=== PATIENT | female | born 1945 | race Caucasian/White ===

== ENCOUNTER 2020-06-01 10:36 | Emergency (ER) | payer OTHER ==
[~2020-06-01] VITALS: Ht 162.6 cm; Wt 59.2 kg
[2020-06-01] MEDS ORDERED: CHILDREN'S ASPI81 M1 PO (10:54)
[2020-06-01] MEDS ORDERED: LIPITOR 40 MG T40 M1 PO (10:55)
[2020-06-01] MEDS ORDERED: SERTRALINE HCL100 MG PO (10:55)
[2020-06-01] MEDS ORDERED: CLARITIN10 M3 PO (10:55)
[2020-06-01] MEDS ORDERED: NEXIUM 40 MG CA40 M1 PO (10:55)
[2020-06-01] MEDS ORDERED: METAMUCIL FREE822 GM PO (10:56)
[2020-06-01] MEDS ORDERED: CLOMIPRAMINE HC50 M1 PO (10:56)
[2020-06-01 11:35] LABS: HEMATOCRIT 29.2 % (37.0-47.0); HEMOGLOBIN 9.3 gm/dL (12.0-15.0); MCH 20.5 pg (26.0-34.0); MCV 64.2 fL (80.0-100.0); PLATELET COUNT 240 thou/uL (150-400); RBC 4.54 mil/uL (4.20-5.00); RDW 15.8 % (10.5-14.5); WBC 7.7 thou/uL (4.0-11.0)
[2020-06-01 11:38] LABS: URINE BILIRUBIN NEGATIVE (Negative); URINE BLOOD NEGATIVE (Negative); URINE CLARITY CLEAR; URINE COLOR YELLOW; URINE GLUCOSE-RANDOM* NEGATIVE (Negative); URINE KETONES NEGATIVE (Negative); URINE LEUKOCYTES-REFLEX NEGATIVE (Negative); URINE NITRITE-REFLEX NEGATIVE (Negative); URINE PROTEIN (DIPSTICK) NEGATIVE (Negative); URINE UROBILINOGEN 0.2 E.U./dl (0.2-1.0)
[2020-06-01 11:46] LABS: CALCIUM 8.5 mg/dL (8.5-10.1); CREATININE 0.6 mg/dL (0.6-1.0); POTASSIUM 4.3 mmol/L (3.5-5.1)
[2020-06-01 11:55] LABS: ABSOLUTE NEUTROPHILS 5.3 thou/uL (1.4-8.2); ANISOCYTOSIS 1+; HYPOCHROMASIA 1+; MICROCYTES 2+; PLATELET ESTIMATE NORMAL
[2020-06-01 17:40] VITALS: BP 160/81
== END 2020-06-01 17:48 ==
LOC: ER 10:36
PROVIDERS: Nurse Practitioner
DX: R46.89 Other symptoms and signs involving appearance and behavior (principal); Z20.822 Contact with and (suspected) exposure to COVID-19; E78.00 Pure hypercholesterolemia, unspecified; Z88.0 Allergy status to penicillin; Z79.82 Long term (current) use of aspirin; Z79.899 Other long term (current) drug therapy; Z90.710 Acquired absence of both cervix and uterus

== ENCOUNTER 2020-06-01 14:32 | Inpatient (IN) | payer OTHER ==
[~2020-06-01] VITALS: Ht 165.1 cm; Wt 57.3 kg
[~2020-06-01 14:32] MED LIST: CHILDREN'S ASPI81 M1 PO; CLARITIN10 M3 PO; CLOMIPRAMINE HC50 M1 PO; LIPITOR 40 MG T40 M1 PO; METAMUCIL FREE822 GM PO; NEXIUM 40 MG CA40 M1 PO; SERTRALINE HCL100 MG PO
--- NOTE | 2020-06-01 18:46 | NUR ---
PATIENT ADMITED TO FLOOR AT 1800 VIA CART, TRANSFERED TO BED. VS OBTAINED BP- 141/96 P-114 R-18 T-97.2 O2 SATS 97%. PATIENT SLEEPING AND SNORING. REPORT RECIEVED FROM ED AT 1845. DR CURIEL HERE TO SEE PATIENT. WILL REPORT OFF TO NEXT SHIFT.
[2020-06-01 19:40] VITALS: BP 136/83
--- NOTE | 2020-06-01 21:00 | NUR ---
PHARMACY CALLED AND STATED THEY DIDN'T HAVE CLOMIPRAMINE THAT THE PT WOULD PROBABLY NEED TO BRING HOME MED OR USE ANOTHER TCA: AMITRIPTALINE.
[2020-06-01 21:30] VITALS: BP 136/83
--- NOTE | 2020-06-01 21:44 | NUR ---
PT UP AND AT NURSING STATION ASKING FOR , PT WEARING GOWN AND NO SOCKS. PT ESCORTED TO DINING ROOM AND OFFERED SOMETHING TO EAT, PT WANTED SOME COFFEE. PT UNABLE TO HAVE COFFEE AT THIS TIME. PT ATE APPLESAUCE, PUDDING, MAORI ICEY, AND WATER. PT ORIENTED TO SELF, PLACE, DAY, AND PRESIDENT. PT STATED SHE WAS HERE FOR A MED REACTION. 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 PT STATED SHE LOST WT AND WAS WEARING SIZE 12 DOWN TO SIZE 6. PT STATED SHE HAD ONE SON NAMED TASHA AND HE WHEN HE WAS 39 FROM [place], SHE STATED HE WAS IN A [facility] AND WAS AUTISTIC. SHE SAID HOW SMART HE WAS AND HE COULD FIND HER CAR IN A HOSPITAL PARKING LOT FULL OF DIFFERENT CARS. SHE IS HARD OF HEARING AND DOES NOT HAVE HER HEARING AIDS WITH HER. GAVE PT GRIPPER SOCKS TO WEAR AND A WALKER. CALLUM SAVAGE CAME TO INTERVIEW HER. SHE SAID SHE HAD HISTORY OF SI YEARS AGO AND SHE LEARNED FROM THAT. DENIES ANY SI OR HI AND ALSO ANY HALLUCINATIONS AT THIS TIME.
[2020-06-02 05:39] LABS: ALBUMIN 2.8 g/dL (3.4-5.0); DIRECT BILIRUBIN 0.1 mg/dL (<0.1-0.2); TOTAL BILIRUBIN 0.5 mg/dL (0.2-1.0)
[2020-06-02 06:06] LABS: FOLIC ACID 11.4 ng/mL (8.6-58.9)
[2020-06-02 10:27] VITALS: BP 126/75
--- NOTE | 2020-06-02 12:09 | NUR ---
PT ALERT AND ORIENTED TIMES FOUR. VSS. PT DENIES PAIN/SOA. PT ALSO DENIES SI/HI/AH/VH. PT INTERACTS WITH STAFF AND PEERS. PT ATTENDS GROUPS. PT WORKED WELL WITH PT TODAY WALKING AROUND THE UNIT. PT WAS HERE VISITING THIS MORNING. WILL CONTINUE TO MMONITOR.
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
--- NOTE | 2020-06-02 16:53 | EKG ---
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
[2020-06-02 19:34] VITALS: BP 125/57
--- NOTE | 2020-06-03 01:05 | NUR ---
Alert and orientated X4. Interacting with peers and staff. Talking about her autistic son who this year at age 39. Denies SI/HI. Able to stand and take a few steps, calm, cooperative and compliant. Breath sounds clear. Reg HR auscultated. Color pink with brisk capillary refill and palpable peripheral pulses. Yellow urine. Active bowel sounds over soft, flat abdomen. Currently sleeping without s/o distress.
[2020-06-03 09:03] VITALS: BP 160/69
--- NOTE | 2020-06-03 12:22 | NUR ---
PATIENT ALERT AND ORIENTED X 4 - HYPERVERBAL THIS MORNING. FIXATED AND TALKED ABOUT PRINCE LAUREN AND ROYAL FAMILY CONTINUOUSLY. EASILY REDIRECTED. NO PAIN WHEN ASSESSED OR DISCOMFORT. STATED SLEPT WELL. MEDICATION COMPLIANT - NAKES NEEDS KNOWN READILY. DENIES ANY S/I OR H/I UP AND AMBULATING WITH WALKER.
[2020-06-03 19:38] VITALS: BP 133/70
--- NOTE | 2020-06-04 00:44 | NUR ---
Alert and orientated X4. Denies SI/HI. Interactive with peers and staff, hyperverbal. Ambulates with walker with slow gait. Breath sounds clear. Reg HR auscultated. Color pink with brisk capillary refill and palpable peripheral pulses. Yellow urine per toilet. Active bowel sounds over soft, rounded abdomen. Currently sleeping without s/o distress.
[2020-06-04 08:52] VITALS: BP 143/80
--- NOTE | 2020-06-04 15:32 | NUR ---
SLIGHTLY HYPERVERBAL DURING 1;1 INTERACTION/PHYSICAL ASSESSMENT THIS AM-SPEECH IS GARBLED AND DIFFICULT TO UNDERSTAND AT TIMES -PRESSURED SPEECH AND CONVERSATION IS CIRCUMSTANTIAL-INITALLY TALKING ABOUT MOVING TO 1 YEAR AGO AND TRANSITIONED TO EXTENDED FAMILY AND THEIR CAREERS/CHILDREN. WAS COOPERATIVE WITH REQUESTS FROM STAFF AND INTERACTS PLEASANTLY WITH PEERS AND STAFF. DENIES C/O PAIN/DISCOMFORT. AMBULATES WITH SBA X1. GAIT STEADY WITHOUT ASSISTIVE DEVICES. DESCRIBES MOOD "PRETTY GOOD"-NO NOTED OR REPORTED ACUTE ANXIETY-A/V HALLUCINATIONS OR PARANOIA/PSYCHOSIS.APPETITE GOOD
[2020-06-04 19:21] VITALS: BP 156/62
[2020-06-04 20:30] VITALS: BP 156/62
--- NOTE | 2020-06-05 04:51 | NUR ---
PATIENT SAT UP IN DINING ROOM THIS EVENING. AT FIRST SHE SAT OFF BY HERSELF BUT GRADUALLY MOVED TO CENTER OF ROOM AND SAT ON THE COUCH. SHE WATCHED TV WITH ANOTHER FEMALE PATIENT AND THEY SEEMED TO ENJOY EACH OTHER'S COMPANY. PATIENT WAS ASSISTED TO HER ROOM AT 2200 TO GET READY FOR BED. SHE TOOK HER MED WHOLE WITH WATER. SHE HAS BEEN PLEASANT AND COOPERATIVE. SHE IS FRIENDLY AND SMILING. SHE IS VERY [place]. SHE READS LIPS WELL. DENIES PAIN. DENIES SI/HI/AVH. SHE IS A/0X3 AND IS HYPERVERBAL. SHE IS APPROPRIATE FOR AGE. PT HAS BEEN RESTING IN BED WITH EYES CLOSED. PATIENT IS CONTINENT. ROUTINE ROUNDS TO ASSESS SAFETY AND STATUS OF PATIENT. BED IN LOW POSITION.
[2020-06-05 08:48] VITALS: BP 140/57
[2020-06-05 11:31] VITALS: BP 140/57
--- NOTE | 2020-06-05 12:32 | NUR ---
1230 RESUMMED CARE FROM OVERNIGHT SHIFT THIS AM, PATIENT IN ROOM ASLEEP. I GOT PATIENT READY FOR BREAKFAST SHE ATE TOOK MEDICATION WITHOUT INCIDENCE. PATIENT DENIES SI/HI/AH/VH AT PRESENT. PATIENTS ABDOMEN SOFT BOWEL SOUNDS PRESENT PATIENTS LUNGS CLEAR. PATIENT ALERT ORIENTED TIMES 3 SHE DOES PARTICPATE IN GROUPS. PATIENT OCCASSIONAL TALKS WITH OTHER FEMALE PATIENTS PATIENT HAS NO BEHAVIORS THIS SHIFT. WILL CONTINUE TO MONITOR PATIENT FOR SAFETY AND BEHAVIORS.
[2020-06-05 19:34] VITALS: BP 143/72
[2020-06-05 20:06] LABS: SYPHILIS AB Non Reactive (Non Reactive)
[2020-06-05 20:10] VITALS: BP 143/72
--- NOTE | 2020-06-06 04:42 | NUR ---
PATIENT STATES SHE DID NOT HAVE A GOOD DAY BUT FELT HER EVENING WAS MUCH BETTER SINCE SHE WAS SITTING IN THE DINING ROOM WITH LOTS OF PEOPLE. SHE HAS BEEN SMILING AND SPEAKS WHEN SPOKEN TOO AND THEN SHE DOESN'T WANT TO STOP TALKING. SHE HAS GREAT DIFFICULTY IN HEARING AND A PERSON HAS TO YELL FOR HER TO HEAR THEM. SHE IS INDEPENDENT WITH CARES. CONTINENT. A/0X3 BUT CONFUSED AT TIMES. DENIES PAIN, SI/HI/AVH. ROUTINE ROUNDS TO ASSESS SAFETY AND STATUS OF PATIENT. SHE HAS BEEN CALM AND COOPERATIVE. ENCOURAGED FLUIDS TONIGHT WITH MEDS AND AT SNACK TIME.
[2020-06-06 08:53] VITALS: BP 157/66
--- NOTE | 2020-06-06 16:33 | NUR ---
VISIBLE IN DAYROOM INTERACTING WITH PEERS THROUGHOUT MAJORITY OF SHIFT-DID ATTEND ALL MEALS AND SCHEDULED GROUPS WITH MINIMAL PROMPTS. REPORTINGS ENJOYING TALKING TO OTHERS CALLING HERSELF A "CHATTERBOX" SPEECH IS LOUD,GARBLED AND PRESSURED-CONVERSATION AT TIMES TANGENTIAL IS ORIENTED X4-AMBULATORY PER SELF AND CONTINENT OF B/B. REPORTS GOOD APPETITE AND SLEEP AND DENIES ANY PAIN/DISCOMFORT WHEN ASKED DURING AM ASSESSMENT.
--- NOTE | 2020-06-06 17:13 | NUR ---
MILK OF MAGNESIA 15ML GIVEN PO PRN PER REQUEST AT 1700-STATES HASN'T HAD A BM FOR "A LONG TIME" UNABLE TO RECALL EXACT DATE BUT THINKS IT WAS "4 OR 5 DAYS" IS DOCUMENTED HAVING BM ON 06-04 BUT STATES THAT WAS "REAL SMALL" BS ACTIVE X4-ABDOMEN SOFT-NONTENDER.
[2020-06-06 19:58] VITALS: BP 143/85
--- NOTE | 2020-06-07 04:43 | NUR ---
ASSUMED CARE ON 06/06/20 @ 1900, IN THE DAY ROOM WITH PEERS AND STAFF. BECOMES CONCERNED ABOUT PEERS AND WORRIES ABOUT THEIR BEHAVIORS. COMPLIANT WITH MEDICATION AND COOPERATIVE WITH ASSESSMENT. RETIRED TO BED @ , BED IN LOW POSITION, ROUNDING PER UNIT PROTOCOL.
--- NOTE | 2020-06-07 17:13 | NUR ---
SW sent referrals to the following: Rom Gallardo of [facility] will follow up
--- NOTE | 2020-06-07 19:10 | NUR ---
PATIENT UP AND AD RALPH. PLEASANT- MAKES NEEDS KNOWN - DENIES S/I OR H/I - MEDICATION COMPLIANT. HYPERVERBAL - THOUGHT PATTERNS JUMBLED - GOES OFF TRACK. GOOD APPETITE. ASSESSEDBY DIAMOND KENDALL AT 3 PM TODAY. FACILITY COMING TOMORROW TO ASSESS PATIENT FOR POSSIBLE ADMITTANCE - UNABLE TO MEET WITH PATIENT TODAY PATIENT EASILY REDIRECTED. WORKED WITH PHYSICAL THERAPY AND WAS INFORMED THAT RIGHT SHOE SHOULD BE WORN FOR BALANCE WHEN AMBULATING WITH WALKER. PASSE DON TO PUPIL PERSONNEL WORKER.
[2020-06-07 19:36] VITALS: BP 133/59
--- NOTE | 2020-06-08 04:34 | NUR ---
ASSUMED CARE ON 06/07/20 @ 19:15, SOCIALIZING WITH PEERS AND COMMUNICATING WITH STAFF IN THE DAY ROOM. A&OX4, HOWEVER VERY [place]. PLEASANT AFFECT NOTED, LIKES TO BE HELPFUL. GABAPENTIN INCREASED OT 200MG. TAKES MEDS WHOLE WITH WATER. LAST BM NOTED TO BE 06/06. REQUESTED AND PROVIDED METAMUCIL FOR CONSTIPATION. RETIRED TO BED @ HS, EYES CLOSED, RESPIRATIONS EVEN AND UNLABORED. AMBULATES WITH A WALKER. WILL CONTINUE TO MONITOR FOR COMFORT AND SAFETY PER UNIT PROTOCOL.
[2020-06-08 09:35] VITALS: BP 140/70
--- NOTE | 2020-06-08 11:27 | NUR ---
Pt completed and in person assessment with Barb Bustamante of OP. [facility] facilities have accepted the Pt and will reach out to Juan Francisco. SRUTHI will also reach out to Juan Francisco concerning his decision on his facility choice. SRUTHI will continue to follow up
--- NOTE | 2020-06-08 14:19 | NUR ---
RT Progress Note- Pili has been active in both the milieu and recreation therapy groups since her admission. Pili is very hard of hearing, but is certain to sit near group wall attendant to maximize hearing. She enjoys sharing stories and socializing with fellow pts. She has not displayed poor behaviors during RT interaction. UNCRATER will continue to encourage pts participation and socialization.
[2020-06-08 16:15] VITALS: BP 140/70
[2020-06-08 16:20] VITALS: BP 140/70
--- NOTE | 2020-06-08 16:26 | NUR ---
ASSUMED CARE AT 0700 THIS MORNING. PT. IS ALERT AND ORIENTED X 4. SHE IS HYPERVERBAL PARTICIPATING IN GROUPS. SHE IS EXTREMELY [place]. SHE TAKES HER MEDICATIONS WHOLE WITH WATER. HER VSS. LUNGS CTA. HRR. SHE HAS A SORE ON HER RIGHT SECOND TOE, SHE SAYS IS EXTREMELY PAINFUL. SHE IS NOT WEARING A SHOE ON THAT FOOT DUE TO THE SORE. SHE IS RECEIVING GABAPENTIN FOR PAIN. SHE IS AMBULATORY W/WALKER. SHE CONTINUES TO BE MONITORED Q 12 MINUTES AND PRN FOR SAFETY. NO NEW PROBLEMS NOTED OR VOICED. WILL CONTINUE TO MONITOR.
[2020-06-08 20:00] VITALS: BP 127/50
--- NOTE | 2020-06-09 01:22 | NUR ---
ASSUMED CARE AT 1900.PT WAS OBSERVED SITTING IN THE DAY ROOM SOCIALIZING WITH OTHERS BEFORE SHE RETIRED FOR THE NIGHT.PT [place],LOUD WHEN HAVING CONVERSATIONS. PT WAS OBSERVED STRAINING TO HAVE A BM DURING ONE OF MY ROUNDING.PT REQUESTED FOR STOOL SOFTNER,PRN MOM GIVEN.PT HAD A FEW HARD FORMED MARIA R THAT WAS DIFF TO PASS.PT WAS ENCOURAGED TO STOP STRAINING AND GIVE THE PRN MED TIME TO WORK.PT VOICED UNDERTANDING AND WENT TO BED.SLEEPING ON HER BED AT THIS TIME.
--- NOTE | 2020-06-09 09:30 | NUR ---
STATES HAD A LARGE BM THIS MORNING PRIOR TO BREAKFAST. DENIES PHYSICAL COMPLAINTS DURING AM ASSESSMENT WITH THIS RN-BS ACTIVE X4. TALKATIVE AND BRIGHT AFFECT. DENIES ACUTE ANXIETY OR SI/SH/HI. DESCRIBES MOOD "PRETTY GOOD I'M HOT RIGHT NOW HAVING A HOT FLASH" GAIT IS STEADY -DENIES C/O PAIN/DISCOMFORT. ORIENTED X3. COMPLIENT WITH MEDS AND PROGRAMMING.
[2020-06-09 10:07] VITALS: BP 111/43
--- NOTE | 2020-06-09 15:18 | NUR ---
SRUTHI spoke with Juan Francisco concerning his choice of facilities. Juan Francisco decieded on Sami of OP. SRUTHI informed that [facility] is able to accept the Pt on Friday06/12/2020. Juan Francisco stated he was unable to to transport the Pt and requested transportation for the Pt. D/C set for 06/12/2020 @ 0900 to [facility] of . Pt will be transported via express transportation
[2020-06-09 19:30] VITALS: BP 127/60
[2020-06-09 22:10] VITALS: BP 127/60
--- NOTE | 2020-06-09 23:06 | NUR ---
2305 RESUMMED CARE FROM DAY SHIFT THIS EVENING, PATIENT IN SITTING IN DAY ROOM QUIET. PATIENT ALERT ORIENTED TIMES 3 PATIENT IS CALM COOPERATIVE LIKES TO TALK. PATIENTS ABDOMEN SOFT BOWEL SOUNDS PRESENT PATIENTS LUNGS CLEAR. PATIENT DENIES SI/HI/AH/VH AT PRESENT, PATIENT HAS NOT DISPLAYED ANY BEHAVIORS THIS SHIFT. WILL CONTINUE TO MONITOR PATIENT FOR SAFETY AND BEHAVIORS.
[2020-06-10 08:23] VITALS: BP 151/68
--- NOTE | 2020-06-10 18:37 | NUR ---
0700 ASSUMED CARE OF PATIENT, PATIENT IN BED AT THAT TIME. AMB WITH STEADU GAIT. MEDICATION TAKEN WHOLE WITHOUT DIFFICULTY. PATIENT IS [place], SPEAKS WITH LOUD VOICE NON STOP. DISRUPTING OTHERS WHILE OTHERS WATCHING TV. PATIENT PRESENT IN GROUP. NO C/O PAIN. DENIES SI/HI.
[2020-06-10 19:45] VITALS: BP 126/67
--- NOTE | 2020-06-11 05:49 | NUR ---
Assumed care on 06/10/20 @ 1900, pleasant cooperative with assessment and compliant with medication. Reports had a loose bm. Reports that it was unusual to need help getting herself cleaned up. Retired to bed @ HS. Uses walker to ambulate. Bed in low position, will continue to monitor as per unit protocol for safety and comfort.
[2020-06-11 09:33] VITALS: BP 129/65
--- NOTE | 2020-06-11 14:38 | NUR ---
SRUTHI emailed updates to [email or web address] SW team will remain available.
--- NOTE | 2020-06-11 18:20 | NUR ---
0700 ASSUMED CARE OF PATIENT, PATIENT IN BED AT THAT TIME. PATIENT AMB WITH WALKER WITH STEADY GAIT. VS 129/65, 85, 18, 97.8, 99%. MEDICATION TAKEN WHOLE WITHOUT DIFFICULTY. PRESENT IN GROUPS TODAY. NO C/O PAIN, LS CLEAR, BS ACTIVE. DENEIS NEEDS.
[2020-06-11 19:00] VITALS: BP 122/61
--- NOTE | 2020-06-12 04:09 | NUR ---
ASSESSMENT DOCUMENTED.PT BEEN SLEEPING MOST OF THE NOC.VSS.PT CALM AND CO-OPERATIVE WITH CARE.TOOK MEDS W/O PROBLEMS.AMBULATES W/WALKER.PT DENIES PAIN OR ANY DISTRESS AT THIS TIME.
[2020-06-12] MEDS ORDERED: CLARITIN10 MG PO (08:45)
[2020-06-12] MEDS ORDERED: LIPITOR40 MG PO (08:46)
[2020-06-12] MEDS ORDERED: BAYER CHEWABLE81 MG PO (08:46)
[2020-06-12] MEDS ORDERED: GABAPENTIN 100100 MG PO (08:47)
[2020-06-12] MEDS ORDERED: ZOLOFT 50 MG TA50 MG PO (08:48)
[2020-06-12] MEDS ORDERED: NAMENDA 5 MG TAB5 M1 PO (08:49)
[2020-06-12] MEDS ORDERED: PROTONIX 20 MG20 M1 PO (08:50)
[2020-06-12] MEDS ORDERED: VITAMIN B-12500 MCG PO (08:52)
[2020-06-12 09:27] VITALS: BP 119/65
--- NOTE | 2020-06-12 09:31 | NUR ---
0900 RESUMMED CARE FROM OVERNIGHT SHIFT THIS AM, PATIENT IN ROOM SITTING QUIET. PATIENT IS ALERT ORIENTED TIMES 3 PATIENT DENIES SI/HI/AH/VH AT PRESENT. PATIENTS ABDOMEN SOFT BOWEL SOUNDS PRESENT PATIENTS LUNGS CLEAR. PATIENT CALM COOPERATIVE NO BEHAVIORS DISPLAYED PATIENT IS DISCHARGING TODAY. TO [facility] REPORT CALLED TO FACILITY AND PATIENT AND BELONGINGS SENT.
[2020-06-12 10:22] VITALS: BP 119/65
--- NOTE | 2020-06-13 21:06 | D ---
[facility] [place] [address] DISCHARGE SUMMARY Name: SIMON MURRIETA Room #: 522B-B [facility] IN M.R.#: [id number] Admission: 06/01/20 Attend Phys: Ravi Mccain DO Discharge: 06/12/20 Date of : 47 Report #: [id number] THIS REPORT FOR: cc: Sukh Arzola MD, Gregory MD Kerstein,Ravi Ward DO ~ DOC #: [id number] RAVI Mccain DO DATE OF SERVICE: 06/12/2020 INPATIENT PSYCHIATRIC DISCHARGE SUMMARY ATTENDING PSYCHIATRIST: Ravi Mccain DO. RUG WEAVER AT TIME OF DISCHARGE: Angie Eller M.D. DISCHARGE DIAGNOSIS: Major neurocognitive disorder, type unspecified with behavioral disturbance. Other morbidities include unspecified depression, currently on sertraline. Medical comorbidities for this patient include hyperlipidemia, on Lipitor; seasonal allergies, on Claritin; gastroesophageal reflux disease, on Protonix; moderate protein-calorie malnutrition with an albumin of 2.8, peripheral neuropathy as well. The patient is discharging to [facility]. The patient has a regular diet with Ensure Enlive at dinner. The patient requires 24/7 care and supervision. DISCHARGE MEDICATIONS: Are as follows: Psyllium husk with sugar, it is Metamucil Free powder 822 grams oral as needed for constipation; loratadine 10 mg oral daily for allergic rhinitis, atorvastatin 40 mg oral daily for hyperlipidemia, aspirin 81 mg p.o. daily for heart protection, Neurontin 200 mg oral 3 times a day for pain and mood stabilization, sertraline 75 mg oral daily for depression; memantine, currently getting 5 mg oral twice daily, titrate that to 5 mg in the morning and 10 mg in the evening in 1 week and then 2 weeks from now, she should be at 10 mg twice a day of memantine for cognitive enhancement; pantoprazole 40 mg oral daily for GERD, cyanocobalamin 1000 mcg oral daily for supplementation. LABORATORY DATA: Done this admission, hematology on 06/01, H and H 9.3 and 29.2. White count 7.7, platelet count 240. Chemistry: Sodium 141, potassium 4.3, chloride 105, bicarbonate 27, anion gap 9, BUN of 38, creatinine 0.6, estimated GFR 98, glucose 126, calcium 8.5, total bilirubin 0.5, direct bilirubin 0.1, AST 18, ALT 20, alkaline phosphatase 42, total protein 6.0, albumin 2.8. Vitamin B12 of 263, which is low. Vitamin D actually normal at 47.6. Folate normal at 11.4. Urinalysis this admission was completely clear. Syphilis serology was nonreactive. COVID-19 was negative. She had a head CT done 06/02, which showed normal CT scan of the head. [address] [address] DISCHARGE SUMMARY Name: SIMON MURRIETA Room #: 52-B [facility] IN M.R.#: [id number] Admission: 06/01/20 Attend Phys: Ravi Mccain DO Discharge: 06/12/20 Date of : 47 Report #: [id number] REASON FOR ADMISSION: Back on the or so may, a 74-year-old female, patient of Dr. Nestor Bloom, referred for admission for inpatient psychiatric care. The patient had recently been sitting on the toilet for hours and saying she has to go to the bathroom, having conversations with people who were not there as well as persons that had since . HOSPITAL COURSE: The patient was admitted to geriatric psychiatry unit. I forgot to mention, I did consult Dr. Austyn Edmonds, the neuropsychologist this admission. Result of his evaluation was major neurocognitive disorder, unspecified, with poor insight, mild severity unspecified anxiety disorder. I met with her Juan Francisco during the admission, elected to start her on Namenda titration. I felt given the behaviors he dealt with before admission and the progressive nature of the neurodegenerative disorder, she will be best suited with a placement. He agreed to this, so this was completed. PHYSICAL EXAMINATION: VITAL SIGNS: Day of discharge, temperature 36.7, pulse 82, respirations 18, BP 119/65, O2 sat 99%. MUSCULOSKELETAL: Assisted gait with walker. MENTAL STATUS EXAMINATION: This is a well-developed, fairly suboptimally nourished female, appearing slightly older than stated age. Attention limited. Concentration limited. Speech frequently abnormal. No psychomotor retardation, some psychomotor agitation at times. Mood and affect congruent and euthymic. Denied auditory, visual, or tactile hallucinations. Denied SI, HI. Memory noted to be impaired. Insight limited. Judgment limited. Fund of knowledge, no greater than average. PROGNOSIS: For this patient is guarded given the age of 74, having a neurodegenerative disorder. RAVI Mccain DO AHK/HEM/ELAINE <ELECTRONICALLY SIGNED> By: Ravi Mccain DO 06/13/20 [id number] Ravi Mccain, DO /nt
== END 2020-06-12 09:10 | DRG 884 ==
LOC: SBH 14:32
PROVIDERS: ADMIT Psychiatry & Neurology Psychiatry; ATTEND Psychiatry & Neurology Psychiatry
DX: F01.51 Vascular dementia, unspecified severity, with behavioral disturbance (principal); E44.0 Moderate protein-calorie malnutrition; E78.5 Hyperlipidemia, unspecified; F32.9 Major depressive disorder, single episode, unspecified; K21.9 Gastro-esophageal reflux disease without esophagitis; E78.00 Pure hypercholesterolemia, unspecified; F42.9 Obsessive-compulsive disorder, unspecified; J30.2 Other seasonal allergic rhinitis; Z68.21 Body mass index [BMI] 21.0-21.9, adult; Z88.0 Allergy status to penicillin; Z90.710 Acquired absence of both cervix and uterus
CPT/HCPCS: 10880